=== PATIENT | female | born 1995 | race Caucasian/White ===

== ENCOUNTER 2019-05-10 13:58 | Outpatient (CLI) | payer BC | END 2019-05-10 13:59 | disposition home or self-care (01) | LOC: CTENTCT 13:58 | PROVIDERS: ATTEND Student in an Organized Health Care Education/Training Program | DX: J32.9 Chronic sinusitis, unspecified (principal) | CPT/HCPCS: 70486 ==

== ENCOUNTER 2019-06-11 09:44 | Day surgery (SDC) | payer BC ==
[2019-06-11] MEDS ORDERED: Bacitracin Zinc Ointment 30 gm TUBE ONE (10:40)
[2019-06-11] MEDS ORDERED: Lidocaine 1% w/Epinephrine 1:100K 20 ML VIAL ONE (10:40)
[2019-06-11] MEDS ORDERED: AFRIN NASAL MIST 15 ML BOT ONE ×2 (10:40→10:55)
[2019-06-11 10:53] LABS: BHCG - Serum Negative (NEGATIVE); Pregs Control Background? CLEAR/WHITE (CLR/WHITE); Pregs Control Bar Appear? YES (CONTROL BAR)
[2019-06-11] MEDS ORDERED: Ketamine 50 MG/ML (10ML VIAL) ONE ×2 (11:01→11:07)
[2019-06-11] MEDS ORDERED: Propofol 1,000 MG/100 ML VIAL IV ONE (11:01)
[2019-06-11] MEDS ORDERED: Fentanyl 250 MCG/5 ML VIAL ONE (11:01)
[2019-06-11] MEDS ORDERED: Dexmedetomidine 200 MCG/2 ML VIAL ONE (11:08)
[2019-06-11] MEDS ORDERED: Glycopyrrolate 0.2 MG/ML 5 ML SYRINGE ONE (11:20)
[2019-06-11] MEDS ORDERED: Ondansetron PF 4 MG/2 ML Vial ONE (11:20)
[2019-06-11] MEDS ORDERED: Esmolol 100 MG/10 ML VIAL ONE (11:20)
[2019-06-11] MEDS ORDERED: Dexamethasone 20 MG/5 ML VIAL ONE (11:20)
[2019-06-11] MEDS ORDERED: PROPOFOL 200 MG/20 ML VIAL ONE (11:20)
[2019-06-11] MEDS ORDERED: Rocuronium Bromide 10 MG/ML (10ML VIAL) ONE (11:20)
[2019-06-11] MEDS ORDERED: Lidocaine 1% PF 5 ML VIAL ONE (11:20)
[2019-06-11] MEDS ORDERED: Midazolam HCl 2 mg/2 ml Vial ONE (11:24)
[2019-06-11] MEDS ORDERED: PROPOFOL 20 ML ONE (13:11)
[2019-06-11] MEDS ORDERED: Fentanyl 100 MCG/2 ML VIAL ONE (14:05)
[2019-06-11] MEDS ORDERED: Hydrocodone-Acetamin 15 ML UDCUP ONE (16:03)
--- NOTE | 2019-06-12 15:30 | OP ---
DATE OF PROCEDURE: 06/11/2019 PREOPERATIVE DIAGNOSES: Chronic rhinosinusitis, turbinate hypertrophy, nasal valve collapse. PROCEDURES PERFORMED: Bilateral image guidance, endoscopic sinus surgery, bilateral maxillary antrostomies with removal of tissue, bilateral total ethmoidectomy, bilateral sphenoidotomy with removal of tissue, bilateral frontal sinusotomy with removal of tissue, bilateral inferior turbinate submucosal reduction, bilateral propel stent placement, and bilateral repair of nasal valve stenosis. PERMIT: Procedures, benefits, risks including of bleeding, infection, injury, anesthesia, allergic reactions, cerebrospinal fluid necessitating revision repair and alternatives were reviewed with the patient and family, who expressed understanding of the information. The consent form was signed and witnessed and a paper copy of the consent form is available for review in the paper chart. INDICATIONS: This is a patient presenting with clinic and radiographic findings of chronic sinusitis, nasal congestion, and nasal valve collapse. ASSISTANTS: None. FINDINGS: Bilateral severe sinus mucosal inflammation and polyposis, and small amount of purulent mucosa was identified bilaterally. DESCRIPTION OF OPERATION: The patient was brought to the operating room and laid supine on the operating room table. After general endotracheal anesthesia was administered, the head of the bed was elevated. The nose was evaluated endoscopically bilaterally and the nasal cavity was injected with 1% lidocaine with 1:100,000 epinephrine and 6 cottonoid pledgets soaked in Afrin were placed in the bilateral nasal cavities, 3 on each side. The patient was then prepped and draped in the usual fashion. Image guidance was then calibrated and used throughout the entirety of the case for localization. The nose was evaluated endoscopically and significant mucosal inflammation and polyposis were present bilaterally. An oscillating debrider was then used to remove obstructive nasal polyposis. The sinuses were evaluated on the left side first. Maxillary antrostomy was performed utilizing a ball-ended seeker to locate the natural ostia of the maxillary sinus. A backbiter and an oscillating debrider were used to make an uncinectomy as well with maxillary antrostomy, which was widely opened up. Polyps were removed from inside the maxillary sinus using oscillating debrider. After this was performed, the anterior ethmoid bulla was taken down utilizing an oscillating debrider followed by opening up of the superior meatus utilizing oscillating microdebrider. The superior turbinate was then identified and just medial to the superior turbinate, the opening of the sphenoid sinus was identified. The entire face of the sphenoid sinus was taken down utilizing two Kerrison, as well as a microdebrider with removal of polyposis from the sinus. The skull base was then identified and traced from a posterior to anterior direction removing the posterior and anterior ethmoid air cells, taking care to avoid injury to the cribriform plate or the lamina papyracea. This led to the frontal sinus and after the frontal sinus recess was widely opened up utilizing a chain Kerrison punch, the same procedure was performed on the opposite side with similar results. Maxillary antrostomy was opened utilizing a backbiter and oscillating microdebrider in a similar fashion with removal of contents from the maxillary sinus. Next, the anterior ethmoid bulla was taken down with an oscillating microdebrider as well as 2 Kerrison. The superior meatus was opened up with the microdebrider and just medial to the superior turbinate, the sphenoid os was identified and widely opened up using a 2 Kerrison as well as a microdebrider with polyp removal from inside the sinus. After this was performed tracing from the skull base in a [id number] direction, removing the posterior and anterior ethmoid air cells utilizing the microdebrider and J curette, care was taken to avoid injury to the lamina papyracea or cribriform plate. This led to the frontal sinus and the frontal sinus was then widely opened utilizing a chain Kerrison punch and mushroom punch. The sinuses were then irrigated with copious amounts of saline and suction afterwards. Hemostasis was achieved with Afrin pledgets. Propel stents were placed bilaterally in the frontal sinuses. At this point, attention was turned to the bilateral inferior turbinates. Reductions were then performed by making a stab incision along the anterior inferior head of each turbinates followed by elevation of mucosal pocket with the turbinate blade. An oscillating debrider was then placed in the pocket to remove the erectile tissue from inside the inferior turbinates on both sides. After this was performed, both inferior turbinates were then lateralized. At this point, attention was then turned to the nasal valve repair. The nasal valve stenosis was evaluated bilaterally and then a marking pen was used to identify the collapse bilaterally. A double-prong skin hook was used to elevate the left nasal ala and an implant was then inserted underneath the lateral cartilages of the left nasal ala tracking underneath the cartilage and over the left nasal bone. The implant was inserted and no bleeding was identified. The same procedure was performed on the right side with the same results. A double-prong skin hook was used to elevate the right nasal ala and then the implant was inserted medially deep to the right nasal ala cartilage just superficial to the right nasal bone. The implant was inserted and seated in good position. There was no residual bleeding after the procedure was performed. The nasal cavity was then evaluated and then a small amount of nasal pore packing was placed into the bilateral middle meatus to prevent future bleeding. The patient was turned back to Anesthesia care for emergence. The patient tolerated the procedure well without complication. Job ID: [id number]
== END 2019-06-11 17:00 | disposition home or self-care (01) ==
LOC: SDC 09:44
PROVIDERS: ATTEND Student in an Organized Health Care Education/Training Program
PROC: 09BU8ZZ Excision of Right Ethmoid Sinus, Via Natural or Artificial Opening Endoscopic (ICD-10-PCS; principal; 2019-06-11)
PROC: 09BL8ZZ Excision of Nasal Turbinate, Via Natural or Artificial Opening Endoscopic (ICD-10-PCS; principal; 2019-06-11)
PROC: 099X8ZZ Drainage of Left Sphenoid Sinus, Via Natural or Artificial Opening Endoscopic (ICD-10-PCS; principal; 2019-06-11)
PROC: 09BV8ZZ Excision of Left Ethmoid Sinus, Via Natural or Artificial Opening Endoscopic (ICD-10-PCS; principal; 2019-06-11)
PROC: 099R8ZZ Drainage of Left Maxillary Sinus, Via Natural or Artificial Opening Endoscopic (ICD-10-PCS; principal; 2019-06-11)
PROC: 099W8ZZ Drainage of Right Sphenoid Sinus, Via Natural or Artificial Opening Endoscopic (ICD-10-PCS; principal; 2019-06-11)
PROC: 099Q8ZZ Drainage of Right Maxillary Sinus, Via Natural or Artificial Opening Endoscopic (ICD-10-PCS; principal; 2019-06-11)
PROC: 09BT8ZZ Excision of Left Frontal Sinus, Via Natural or Artificial Opening Endoscopic (ICD-10-PCS; principal; 2019-06-11)
PROC: 09BS8ZZ Excision of Right Frontal Sinus, Via Natural or Artificial Opening Endoscopic (ICD-10-PCS; principal; 2019-06-11)
DX: J32.9 Chronic sinusitis, unspecified (principal); J34.2 Deviated nasal septum; J34.3 Hypertrophy of nasal turbinates; J34.89 Other specified disorders of nose and nasal sinuses
CPT/HCPCS: 36415; 84703; 85014; C2625; J1100; J2001; J2250; J2405; J2704; J3010